=== PATIENT | male | born 1985 | race Caucasian/White ===

== ENCOUNTER 2019-03-03 11:36 | Observation (INO) | payer OTHER, BC ==
[2019-03-03] MEDS ORDERED: Acetaminophen 500 MG Tab PO ONE (12:03)
[2019-03-03] MEDS ORDERED: Sodium Chloride 0.9% 1,000 ML IV ONE ×3 (12:03→13:38)
[2019-03-03] MEDS ORDERED: Morphine 4 MG/ML Syringe IVPUSH ONE (12:14)
--- NOTE | 2019-03-03 12:41 | EDM.PDOC ---
ED HPI GENERAL MEDICAL PROBLEM - General Chief Complaint: General Stated Complaint: SORE THOAT Time Seen by Provider: 03/03/19 11:45 Source of Information: Reports: Patient History Limitations: Reports: No Limitations - History of Present Illness INITIAL COMMENTS - FREE TEXT/NARRATIVE: HISTORY AND PHYSICAL: History of present illness: Patient is a 33-year-old male who presents to the emergency room today with complaints of generally feeling unwell, cough and sore throat x2 weeks. Earlier this morning he was at the NH and did have a chest x-ray and basic lab work. He was informed to come to the emergency room for further evaluation. Patient denies any headache, change in vision, syncope or near syncope. Denies any chest pain, back pain, shortness of breath. Denies any abdominal pain, nausea, vomiting, diarrhea, constipation or dysuria. Has not noted any blood in urine or stool. Patient has been eating and drinking appropriately. Review of systems: As per history of present illness and below otherwise all systems reviewed and negative. Past medical history: As per history of present illness and as reviewed below otherwise noncontributory. Surgical history: As per history of present illness and as reviewed below otherwise noncontributory. Social history: See social history for further information Family history: As per history of present illness and as reviewed below otherwise noncontributory. Physical exam: General: Well-developed and well-nourished 33-year-old male. Alert and oriented. Nontoxic appearing but anxious and in mild distress. HEENT: Atraumatic, normocephalic, pupils equal and reactive bilaterally, negative for conjunctival pallor or scleral icterus, mucous membranes moist, TMs normal bilaterally, throat clear, neck supple, left anterior tenderness along the cervical chain, no obvious swelling, trachea midline. No drooling or trismus noted. No meningeal signs-nuchal rigidity. No hot potato voice noted. Lungs: Wheezing to the left anterior base, breath sounds equal bilaterally, chest nontender. Dry nonproductive cough noted. Heart: S1S2, tachycardiac regular rate and rhythm without overt murmur Abdomen: Soft, nondistended, nontender. Negative for masses or hepatosplenomegaly. Negative for costovertebral tenderness. Pelvis: Stable nontender. Skin: Intact, warm, dry. No lesions or rashes noted. Extremities: Atraumatic, moves all extremities per self without difficulty or deficits, negative for cords or calf pain. Neurovascular unremarkable. Neuro: Awake, alert, oriented. Cranial nerves II through XII unremarkable. Cerebellum unremarkable. Motor and sensory unremarkable throughout. Exam nonfocal. Notes: Upon arrival patient's temperature is 104.9. Septic work-up is in progress. Patient states that he can feel something in the left anterior neck and has pain there. He has no neck stiffness or nuchal rigidity. Along with the lab work I will get a CT of the soft tissue neck to make sure there is no abscess. Patient's lactate is elevated, blood cultures have been drawn. Fluids are running. Patient is positive for influenza. Were continue to monitor temperature and treat accordingly. Negative soft tissue neck. Due to patient's vital signs I feel he should stay overnight for observation for further monitoring. Patient is aware and agreeable. Dr. Beckett was consulted on this case and agreeable to keeping this patient for observation. Diagnostics: CBC, CMP, lactic acid, blood cultures, UA, Drug Screen Therapeutics: IV fluid x 2, morphine, Tylenol, Ibuprofen Impression: Influenza B Plan: Observation admission to Med/Surg Definitive disposition and diagnosis as appropriate pending reevaluation and review of above. Generalized Pain Score (Numeric/FACES): 6 - Related Data Allergies Allergy/AdvReac Type Severity Reaction Status Date / Time No Known Allergies Allergy Verified 03/03/19 11:57 Home Meds: Home Meds . [No Known Home Meds] 03/03/19 [History] Past Medical History Cardiovascular History: Reports: Hypertension - Infectious Disease History Infectious Disease History: Reports: None - Past Surgical History Musculoskeletal Surgical History: Reports: Hip Replacement Social & Family History - Family History Family Medical History: Noncontributory - Tobacco Use Smoking Status *Q: Never Smoker - Caffeine Use Caffeine Use: Reports: Coffee - Recreational Drug Use Recreational Drug Use: No ED ROS GENERAL - Review of Systems Review Of Systems: Comprehensive ROS is negative, except as noted in HPI. ED EXAM, GENERAL - Physical Exam Exam: See Below (See dictation) Course - Vital Signs Last Recorded V/S: Last Vital Signs Temp 102.2 F H 03/03/19 13:54 Pulse 112 H 03/03/19 13:35 Resp 18 03/03/19 13:35 BP 118/63 03/03/19 13:35 Pulse Ox 98 03/03/19 13:35 - Orders/Labs/Meds Orders: Active Orders 24 hr Category Date Time Status CULTURE BLOOD [BC] Stat Lab 03/03/19 12:10 Received CULTURE BLOOD [] Stat Lab 03/03/19 12:32 Received CULTURE STREP A CONFIRMATION [] Stat Lab 03/03/19 12:02 Results STREP SCRN A RAPID W CULT CONF [] Stat Lab 03/03/19 12:02 Results Blood Culture x2 Reflex Set [OM.PC] Stat Oth 03/03/19 12:03 Ordered Medication Orders Acetaminophen (Tylenol) 650 mg PO Q4H PRN PRN Reason: Pain (Mild 1-3)/fever Albuterol/Ipratropium (Duoneb 3.0-0.5 Mg/3 Ml) 3 ml NEB Q4HRRT PRN PRN Reason: dyspnea/wheezing Sodium Chloride (Normal Saline) 1,000 mls @ 250 mls/hr IV STAT ONE Stop: 03/03/19 17:37 Last Admin: 03/03/19 13:54 Dose: 250 mls/hr Sodium Chloride (Normal Saline) 1,000 mls @ 125 mls/hr IV Q8H KRISTYN Levofloxacin/Dextrose 750 mg/ (Premix) 150 mls @ 100 mls/hr IV Q24H KRISTYN Ondansetron HCl (Zofran) 4 mg IVPUSH Q4H PRN PRN Reason: Nausea Oseltamivir Phosphate (Tamiflu) 75 mg PO BID KRISTYN Labs: Laboratory Tests 03/03/19 03/03/19 03/03/19 Range/Units 12:10 12:10 12:10 WBC 9.42 (4.0-11.0) K/uL RBC 5.46 (4.50-5.90) M/uL Hgb 17.5 H (13.0-17.0) g/dL Hct 48.3 (38.0-50.0) % MCV 88.5 (80.0-98.0) fL MCH 32.1 H (27.0-32.0) pg MCHC 36.2 (31.0-37.0) g/dL RDW Std Deviation 38.7 (28.0-62.0) fl RDW Coeff of Taisha 12 (11.0-15.0) % Plt Count 200 (150-400) K/uL MPV 9.70 (7.40-12.00) fL Neut % (Auto) 80.4 H (48.0-80.0) % Lymph % (Auto) 9.8 L (16.0-40.0) % Jack % (Auto) 9.6 (0.0-15.0) % Eos % (Auto) 0.0 (0.0-7.0) % Baso % (Auto) 0.2 (0.0-1.5) % Neut # (Auto) 7.6 H (1.4-5.7) K/uL Lymph # (Auto) 0.9 (0.6-2.4) K/uL Jack # (Auto) 0.9 H (0.0-0.8) K/uL Eos # (Auto) 0.0 (0.0-0.7) K/uL Baso # (Auto) 0.0 (0.0-0.1) K/uL Nucleated RBC % 0.0 /100WBC Nucleated RBCs # 0 K/uL Lactate 2.4 H* (0.20-2.00) mmol/L Sodium 137 (136-148) mmol/L Potassium 3.6 (3.5-5.1) mmol/L Chloride 99 (98-107) mmol/L Carbon Dioxide 22.0 (21.0-32.0) mmol/L BUN 12 (7.0-18.0) mg/dL Creatinine 1.4 H (0.8-1.3) mg/dL Est Cr Clr Drug Dosing 80.68 mL/min Estimated GFR (MDRD) 58.7 ml/min Glucose 97 (74-106) mg/dL Calcium 9.6 (8.5-10.1) mg/dL Total Bilirubin 0.4 (0.2-1.0) mg/dL AST 25 (15-37) IU/L ALT 29 (14-63) IU/L Alkaline Phosphatase 34 L (46-116) U/L Total Protein 8.8 H (6.4-8.2) g/dL Albumin 4.7 (3.4-5.0) g/dL Globulin 4.1 H (2.6-4.0) g/dL Albumin/Globulin Ratio 1.2 (0.9-1.6) Urine Color Urine Appearance Urine pH (5.0-8.0) Ur Specific [place] (1.001-1.035) Urine Protein (NEGATIVE) mg/dL Urine Glucose (UA) (NEGATIVE) mg/dL Urine Ketones (NEGATIVE) mg/dL Urine Occult Blood (NEGATIVE) Urine Nitrite (NEGATIVE) Urine Bilirubin (NEGATIVE) Urine Urobilinogen (<2.0) EU/dL Ur Leukocyte Esterase (NEGATIVE) Urine Opiates Screen (NEGATIVE) Ur Oxycodone Screen (NEGATIVE) Urine Methadone Screen (NEGATIVE) Ur Barbiturates Screen (NEGATIVE) Ur Phencyclidine Scrn (NEGATIVE) Ur Amphetamine Screen (NEGATIVE) U Methamphetamines Scrn (NEGATIVE) U Benzodiazepines Scrn (NEGATIVE) U Cocaine Metab Screen (NEGATIVE) U Marijuana (THC) Screen (NEGATIVE) 03/03/19 03/03/19 Range/Units 13:22 13:22 WBC (4.0-11.0) K/uL RBC (4.50-5.90) M/uL Hgb (13.0-17.0) g/dL Hct (38.0-50.0) % MCV (80.0-98.0) fL MCH (27.0-32.0) pg MCHC (31.0-37.0) g/dL RDW Std Deviation (28.0-62.0) fl RDW Coeff of Taisha (11.0-15.0) % Plt Count (150-400) K/uL MPV (7.40-12.00) fL Neut % (Auto) (48.0-80.0) % Lymph % (Auto) (16.0-40.0) % Jack % (Auto) (0.0-15.0) % Eos % (Auto) (0.0-7.0) % Baso % (Auto) (0.0-1.5) % Neut # (Auto) (1.4-5.7) K/uL Lymph # (Auto) (0.6-2.4) K/uL Jack # (Auto) (0.0-0.8) K/uL Eos # (Auto) (0.0-0.7) K/uL Baso # (Auto) (0.0-0.1) K/uL Nucleated RBC % /100WBC Nucleated RBCs # K/uL Lactate (0.20-2.00) mmol/L Sodium (136-148) mmol/L Potassium (3.5-5.1) mmol/L Chloride (98-107) mmol/L Carbon Dioxide (21.0-32.0) mmol/L BUN (7.0-18.0) mg/dL Creatinine (0.8-1.3) mg/dL Est Cr Clr Drug Dosing mL/min Estimated GFR (MDRD) ml/min Glucose (74-106) mg/dL Calcium (8.5-10.1) mg/dL Total Bilirubin (0.2-1.0) mg/dL AST (15-37) IU/L ALT (14-63) IU/L Alkaline Phosphatase (46-116) U/L Total Protein (6.4-8.2) g/dL Albumin (3.4-5.0) g/dL Globulin (2.6-4.0) g/dL Albumin/Globulin Ratio (0.9-1.6) Urine Color YELLOW Urine Appearance CLEAR Urine pH 6.5 (5.0-8.0) Ur Specific [place] <= 1.005 (1.001-1.035) Urine Protein NEGATIVE (NEGATIVE) mg/dL Urine Glucose (UA) NEGATIVE (NEGATIVE) mg/dL Urine Ketones TRACE H (NEGATIVE) mg/dL Urine Occult Blood NEGATIVE (NEGATIVE) Urine Nitrite NEGATIVE (NEGATIVE) Urine Bilirubin NEGATIVE (NEGATIVE) Urine Urobilinogen 0.2 (<2.0) EU/dL Ur Leukocyte Esterase NEGATIVE (NEGATIVE) Urine Opiates Screen NEGATIVE (NEGATIVE) Ur Oxycodone Screen NEGATIVE (NEGATIVE) Urine Methadone Screen NEGATIVE (NEGATIVE) Ur Barbiturates Screen NEGATIVE (NEGATIVE) Ur Phencyclidine Scrn NEGATIVE (NEGATIVE) Ur Amphetamine Screen NEGATIVE (NEGATIVE) U Methamphetamines Scrn NEGATIVE (NEGATIVE) U Benzodiazepines Scrn NEGATIVE (NEGATIVE) U Cocaine Metab Screen NEGATIVE (NEGATIVE) U Marijuana (THC) Screen NEGATIVE (NEGATIVE) Meds: Medications Generic Name Dose Route Start Last Admin Trade Name Freq PRN Reason Stop Dose Admin Acetaminophen 650 mg 03/03/19 13:54 Tylenol PO Q4H PRN Pain (Mild 1-3)/fever Albuterol/Ipratropium 3 ml 03/03/19 14:42 Duoneb 3.0-0.5 Mg/3 Ml NEB Q4HRRT PRN dyspnea/wheezing Sodium Chloride 1,000 mls @ 250 mls/hr 03/03/19 13:38 03/03/19 13:54 Normal Saline IV 03/03/19 17:37 250 mls/hr STAT ONE Administration Sodium Chloride 1,000 mls @ 125 mls/hr 03/03/19 14:00 Normal Saline IV Q8H KRISTYN Levofloxacin/Dextrose 750 mg/ 150 mls @ 100 mls/hr 03/03/19 14:45 Premix IV Q24H KRISTYN Ondansetron HCl 4 mg 03/03/19 13:54 Zofran IVPUSH Q4H PRN Nausea Oseltamivir Phosphate 75 mg 03/03/19 14:15 Tamiflu PO BID KRISTYN Discontinued Medications Generic Name Dose Route Start Last Admin Trade Name Freq PRN Reason Stop Dose Admin Acetaminophen 1,000 mg 03/03/19 12:03 03/03/19 12:09 Tylenol Extra Strength PO 03/03/19 12:04 1,000 mg ONETIME ONE Administration Sodium Chloride 1,000 mls @ 999 mls/hr 03/03/19 12:03 03/03/19 12:10 Normal Saline IV 03/03/19 13:03 999 mls/hr STAT ONE Administration Sodium Chloride 1,000 mls @ 999 mls/hr 03/03/19 12:30 03/03/19 13:17 Normal Saline IV 03/03/19 13:30 999 mls/hr STAT ONE Administration Ibuprofen 800 mg 03/03/19 13:26 03/03/19 13:54 Motrin PO 03/03/19 13:27 800 mg ONETIME ONE Administration Morphine Sulfate 4 mg 03/03/19 12:14 03/03/19 13:15 Morphine IVPUSH 03/03/19 12:15 4 mg ONETIME ONE Administration Departure - Departure Time of Disposition: 13:41 Disposition: Refer to Observation Clinical Impression: Influenza - Discharge Information Sepsis Event Note - Evaluation Sepsis Screening Result: No Definite Risk - Focused Exam Vital Signs: Vital Signs Temp Temp Pulse Resp BP Pulse Ox 03/03/19 13:05 118 H 20 122/69 98 03/03/19 12:39 103.1 F H 03/03/19 12:35 103.6 F H 124 H 22 H 120/76 98 03/03/19 12:09 105 F H 03/03/19 11:57 104.9 F H 126 H 20 120/71 99 Date Exam was Performed: 03/03/19 Time Exam was Performed: 15:04 - My Orders Last 24 Hours: My Active Orders 03/03/19 12:02 CULTURE STREP A CONFIRMATION [RM] Stat STREP SCRN A RAPID W CULT CONF [RM] Stat 03/03/19 12:03 Blood Culture x2 Reflex Set [OM.PC] Stat 03/03/19 12:10 CULTURE BLOOD [BC] Stat 03/03/19 12:32 CULTURE BLOOD [BC] Stat - Assessment/Plan Last 24 Hours: My Active Orders 03/03/19 12:02 CULTURE STREP A CONFIRMATION [RM] Stat STREP SCRN A RAPID W CULT CONF [RM] Stat 03/03/19 12:03 Blood Culture x2 Reflex Set [OM.PC] Stat 03/03/19 12:10 CULTURE BLOOD [BC] Stat 03/03/19 12:32 CULTURE BLOOD [BC] Stat
[2019-03-03 12:53] LABS: POTASSIUM,K 3.6 mmol/L (3.5-5.1)
[2019-03-03] MEDS ORDERED: Ibuprofen 800 MG Tab PO ONE (13:26)
[2019-03-03] MEDS ORDERED: Ondansetron 4 MG/2 ML SDV IVPUSH PRN (13:54)
[2019-03-03] MEDS ORDERED: Acetaminophen 325 MG Tab PO PRN (13:54)
--- NOTE | 2019-03-03 14:28 | CT ---
CT neck Technique: Multiple axial sections through the neck were obtained from above the external auditory canals inferiorly to the lung apices. Comparison: No prior neck imaging. Findings: Parotid salivary glands and submandibular salivary glands are within normal limits. Thyroid gland appears within normal limits. Visualized lung apices are clear. Small normal size lymph nodes are scattered within the neck. Paranasal sinuses that are seen show nothing acute. Parapharyngeal soft tissues are symmetric between right and left sides. No fluid collections or low density collections within the neck are seen to indicate discrete abscess. No focal inflammatory change is appreciated. Prevertebral soft tissues are normal in thickness. Epiglottis is normal. Impression: 1. No abnormality is appreciated on CT study of the neck. Diagnostic code #1 This report was dictated in [place] Standard Time
[2019-03-03] MEDS ORDERED: Albuterol/Ipratropium 3.0-0.5 MG/3 ML Neb Soln NEB PRN (14:42)
[2019-03-03] MEDS ORDERED: Levofloxacin/Dextrose 5%-Water 750 MG in Premix Bag 1 BAG IV SCH (14:45)
[2019-03-03] MEDS: Oseltamivir 75 MG Cap PO SCH ×2 (15:21→20:21)
--- NOTE | 2019-03-03 15:23 | PCM.HP.2 ---
H&P History of Present Illness - General Date of Service: 03/03/19 Admit Problem/Dx: Admission Diagnosis/Problem Admission Diagnosis/Problem Influenza Source of Information: Patient History Limitations: Reports: No Limitations - History of Present Illness Initial Comments - Free Text/Narative: This 33 year old male with pmh of asthma presented to the ED today with complaints of generalized malaise, fevers, sore throat and shortness of breath. He reports he has been sick for 2 weeks. He reports no chest pain, sometimes has a productive cough which is dark in color. He denies hemoptysis. He reports he has not been eating or drinking for at least 2-3 days. He denies abdominal pain or urinary concerns. No diarrhea, actually has some constipation. He denies getting influenza vaccine. He chews tobacco occasionally, no smoking or vaping, weekend alcohol use and no recreational drug use. In the ED no leukocytosis or leukopenia noted, hgb 17.5 Hct 48. lactic acid elevated at 2.4, BUN 12 and Cr 1.4. CXR negative. Ua negative as well as Utox, negative strep. Influenza swab positive for influenza A. Temps noted to be as high as 105 F in the ED. He was given 3 L NS in the ED as well as Morphine, Tylenol and Ibuprofen. Due to throat and neck pain CT of soft tissue neck obtained, which was negative as well. BC pending. He will be admitted for dehydration, CHRISTIE, and influenza. Generalized Pain Score (Numeric/FACES): 6 - Related Data Allergies/Adverse Reactions: Allergies Allergy/AdvReac Type Severity Reaction Status Date / Time No Known Allergies Allergy Verified 03/03/19 11:57 Home Medications: Home Meds . [No Known Home Meds] 03/03/19 [History] Past Medical History HEENT History: Reports: None Cardiovascular History: Reports: Hypertension. Denies: Afib, CAD Respiratory History: Reports: Asthma. Denies: COPD Gastrointestinal History: Reports: None. Denies: GERD Genitourinary History: Reports: None Musculoskeletal History: Reports: None Neurological History: Reports: Concussion Psychiatric History: Reports: PTSD Endocrine/Metabolic History: Reports: None Hematologic History: Reports: None Immunologic History: Reports: None Oncologic (Cancer) History: Reports: None Dermatologic History: Reports: None - Infectious Disease History Infectious Disease History: Reports: None - Past Surgical History Musculoskeletal Surgical History: Reports: Hip Replacement Social & Family History - Family History Family Medical History: Noncontributory - Tobacco Use Smoking Status *Q: Never Smoker Tobacco Use Within Last Twelve Months: Smokeless Tobacco Years of Tobacco use: 4 Packs/Tins Daily: 1 Used Tobacco, but Quit: Yes Month/Year Tobacco Last Used: december 2008 Second Hand Smoke Exposure: No - Caffeine Use Caffeine Use: Reports: Coffee - Alcohol Use Days Per Week of Alcohol Use: 2 Number of Drinks Per Day: 15 Total Drinks Per Week: 30 Date of Last Drink: 02/17/19 Time of Last Drink: 09:55 - Recreational Drug Use Recreational Drug Use: No - Living Situation & Occupation Occupation: Employed ([employer]) H&P Review of Systems - Review of Systems: Review Of Systems: See Below General: Reports: Fever, Chills, Malaise, Weakness, Fatigue, Night Sweats, Decreased Appetite HEENT: Reports: Headaches, Sinus Congestion. Denies: Ear Pain Pulmonary: Reports: Shortness of Breath, Wheezing, Cough, Sputum Cardiovascular: Denies: Chest Pain Gastrointestinal: Reports: No Symptoms. Denies: Abdominal Pain, Black Stool, Bloody Stool, Decreased Appetite, Nausea, Vomiting Genitourinary: Reports: No Symptoms. Denies: Dysuria, Frequency, Burning Musculoskeletal: Reports: No Symptoms. Denies: Neck Pain Psychiatric: Reports: No Symptoms Neurological: Reports: No Symptoms Hematologic/Lymphatic: Reports: No Symptoms Immunologic: Reports: No Symptoms Exam - Exam Exam: See Below - Vital Signs Vital Signs: Last Vital Signs Temp 102.2 F H 03/03/19 13:54 Pulse 112 H 03/03/19 13:35 Resp 18 03/03/19 13:35 BP 118/63 03/03/19 13:35 Pulse Ox 98 03/03/19 13:35 Weight: 90.718 kg - Exam General: Alert, Oriented HEENT: Conjunctiva Clear, Mucosa Moist & [place]. No: Posterior Pharynx Clear ( throat eryathematous, no pustules) Neck: Supple, Trachea Midline, Lymphadenopathy Lungs: Clear to Auscultation, Normal Respiratory Effort. No: Decreased Breath Sounds, Wheezing Cardiovascular: Regular Rhythm, Tachycardia GI/Abdominal Exam: Normal Bowel Sounds, Soft, Non-Tender, No Organomegaly Back Exam: Normal Inspection, Full Range of Motion Extremities: Normal Inspection, Normal Range of Motion, Non-Tender Neuro Extensive - Mental Status: Alert, Oriented x3 Neuro Extensive - Motor, Sensory, Reflexes: CN II-XII Intact Psychiatric: Alert, Normal Affect, Normal Mood - Patient Data Lab Results Last 24 hrs: Laboratory Results - last 24 hr 03/03/19 03/03/19 03/03/19 Range/Units 12:10 12:10 12:10 WBC 9.42 (4.0-11.0) K/uL RBC 5.46 (4.50-5.90) M/uL Hgb 17.5 H (13.0-17.0) g/dL Hct 48.3 (38.0-50.0) % MCV 88.5 (80.0-98.0) fL MCH 32.1 H (27.0-32.0) pg MCHC 36.2 (31.0-37.0) g/dL RDW Std Deviation 38.7 (28.0-62.0) fl RDW Coeff of Taisha 12 (11.0-15.0) % Plt Count 200 (150-400) K/uL MPV 9.70 (7.40-12.00) fL Neut % (Auto) 80.4 H (48.0-80.0) % Lymph % (Auto) 9.8 L (16.0-40.0) % [place] % (Auto) 9.6 (0.0-15.0) % Eos % (Auto) 0.0 (0.0-7.0) % Baso % (Auto) 0.2 (0.0-1.5) % Neut # (Auto) 7.6 H (1.4-5.7) K/uL Lymph # (Auto) 0.9 (0.6-2.4) K/uL [place] # (Auto) 0.9 H (0.0-0.8) K/uL Eos # (Auto) 0.0 (0.0-0.7) K/uL Baso # (Auto) 0.0 (0.0-0.1) K/uL Nucleated RBC % 0.0 /100WBC Nucleated RBCs # 0 K/uL Lactate 2.4 H* (0.20-2.00) mmol/L Sodium 137 (136-148) mmol/L Potassium 3.6 (3.5-5.1) mmol/L Chloride 99 (98-107) mmol/L Carbon Dioxide 22.0 (21.0-32.0) mmol/L BUN 12 (7.0-18.0) mg/dL Creatinine 1.4 H (0.8-1.3) mg/dL Est Cr Clr Drug Dosing 80.68 mL/min Estimated GFR (MDRD) 58.7 ml/min Glucose 97 (74-106) mg/dL Calcium 9.6 (8.5-10.1) mg/dL Total Bilirubin 0.4 (0.2-1.0) mg/dL AST 25 (15-37) IU/L ALT 29 (14-63) IU/L Alkaline Phosphatase 34 L (46-116) U/L Total Protein 8.8 H (6.4-8.2) g/dL Albumin 4.7 (3.4-5.0) g/dL Globulin 4.1 H (2.6-4.0) g/dL Albumin/Globulin Ratio 1.2 (0.9-1.6) Urine Color Urine Appearance Urine pH (5.0-8.0) Ur Specific [place] (1.001-1.035) Urine Protein (NEGATIVE) mg/dL Urine Glucose (UA) (NEGATIVE) mg/dL Urine Ketones (NEGATIVE) mg/dL Urine Occult Blood (NEGATIVE) Urine Nitrite (NEGATIVE) Urine Bilirubin (NEGATIVE) Urine Urobilinogen (<2.0) EU/dL Ur Leukocyte Esterase (NEGATIVE) Urine Opiates Screen (NEGATIVE) Ur Oxycodone Screen (NEGATIVE) Urine Methadone Screen (NEGATIVE) Ur Barbiturates Screen (NEGATIVE) Ur Phencyclidine Scrn (NEGATIVE) Ur Amphetamine Screen (NEGATIVE) U Methamphetamines Scrn (NEGATIVE) U Benzodiazepines Scrn (NEGATIVE) U Cocaine Metab Screen (NEGATIVE) U Marijuana (THC) Screen (NEGATIVE) 03/03/19 03/03/19 Range/Units 13:22 13:22 WBC (4.0-11.0) K/uL RBC (4.50-5.90) M/uL Hgb (13.0-17.0) g/dL Hct (38.0-50.0) % MCV (80.0-98.0) fL MCH (27.0-32.0) pg MCHC (31.0-37.0) g/dL RDW Std Deviation (28.0-62.0) fl RDW Coeff of Taisha (11.0-15.0) % Plt Count (150-400) K/uL MPV (7.40-12.00) fL Neut % (Auto) (48.0-80.0) % Lymph % (Auto) (16.0-40.0) % [place] % (Auto) (0.0-15.0) % Eos % (Auto) (0.0-7.0) % Baso % (Auto) (0.0-1.5) % Neut # (Auto) (1.4-5.7) K/uL Lymph # (Auto) (0.6-2.4) K/uL [place] # (Auto) (0.0-0.8) K/uL Eos # (Auto) (0.0-0.7) K/uL Baso # (Auto) (0.0-0.1) K/uL Nucleated RBC % /100WBC Nucleated RBCs # K/uL Lactate (0.20-2.00) mmol/L Sodium (136-148) mmol/L Potassium (3.5-5.1) mmol/L Chloride (98-107) mmol/L Carbon Dioxide (21.0-32.0) mmol/L BUN (7.0-18.0) mg/dL Creatinine (0.8-1.3) mg/dL Est Cr Clr Drug Dosing mL/min Estimated GFR (MDRD) ml/min Glucose (74-106) mg/dL Calcium (8.5-10.1) mg/dL Total Bilirubin (0.2-1.0) mg/dL AST (15-37) IU/L ALT (14-63) IU/L Alkaline Phosphatase (46-116) U/L Total Protein (6.4-8.2) g/dL Albumin (3.4-5.0) g/dL Globulin (2.6-4.0) g/dL Albumin/Globulin Ratio (0.9-1.6) Urine Color YELLOW Urine Appearance CLEAR Urine pH 6.5 (5.0-8.0) Ur Specific [place] <= 1.005 (1.001-1.035) Urine Protein NEGATIVE (NEGATIVE) mg/dL Urine Glucose (UA) NEGATIVE (NEGATIVE) mg/dL Urine Ketones TRACE H (NEGATIVE) mg/dL Urine Occult Blood NEGATIVE (NEGATIVE) Urine Nitrite NEGATIVE (NEGATIVE) Urine Bilirubin NEGATIVE (NEGATIVE) Urine Urobilinogen 0.2 (<2.0) EU/dL Ur Leukocyte Esterase NEGATIVE (NEGATIVE) Urine Opiates Screen NEGATIVE (NEGATIVE) Ur Oxycodone Screen NEGATIVE (NEGATIVE) Urine Methadone Screen NEGATIVE (NEGATIVE) Ur Barbiturates Screen NEGATIVE (NEGATIVE) Ur Phencyclidine Scrn NEGATIVE (NEGATIVE) Ur Amphetamine Screen NEGATIVE (NEGATIVE) U Methamphetamines Scrn NEGATIVE (NEGATIVE) U Benzodiazepines Scrn NEGATIVE (NEGATIVE) U Cocaine Metab Screen NEGATIVE (NEGATIVE) U Marijuana (THC) Screen NEGATIVE (NEGATIVE) Result Diagrams: 03/03/19 12:10 03/03/19 12:10 Paul Results Last 24 hrs: Microbiology 03/03/19 12:02 Group A Streptococcus Rapid Screen - Final Throat NEGATIVE STREP A SCREEN REFERENCE RANGE: NEGATIVE 03/03/19 12:02 Influenza Type A Antigen Screen - Final Nasopharyngeal Swab NEGATIVE INFLUENZA A VIRUS AG REFERENCE RANGE: NEGATIVE Influenza Type B Antigen Screen - Final Positive Influenza B Ag Sepsis Event Note - Evaluation Sepsis Screening Result: No Definite Risk - Focused Exam Vital Signs: Vital Signs Temp Temp Pulse Resp BP Pulse Ox 03/03/19 13:54 102.2 F H 03/03/19 13:35 112 H 18 118/63 98 03/03/19 13:05 118 H 20 122/69 98 03/03/19 12:39 103.1 F H 03/03/19 12:35 103.6 F H 124 H 22 H 120/76 98 03/03/19 12:09 105 F H 03/03/19 11:57 104.9 F H 126 H 20 120/71 99 Date Exam was Performed: 03/03/19 Time Exam was Performed: 16:25 - Problem List (1) Dehydration SNOMED Code(s): 46247708 ICD Code: E86.0 - DEHYDRATION Status: Acute Current Visit: Yes (2) Asthma SNOMED Code(s): 755017729 ICD Code: J45.909 - UNSPECIFIED ASTHMA, UNCOMPLICATED Status: Acute Current Visit: Yes (3) CAP (community acquired pneumonia) SNOMED Code(s): 112971548 ICD Code: J18.9 - PNEUMONIA, UNSPECIFIED ORGANISM Status: Acute Current Visit: Yes Qualifiers: Laterality: unspecified laterality Qualified Code(s): J18.9 - Pneumonia, unspecified organism (4) CHRISTIE (acute kidney injury) SNOMED Code(s): 03707771, 92993821 ICD Code: N17.9 - ACUTE KIDNEY FAILURE, UNSPECIFIED Status: Acute Current Visit: Yes (5) Influenza SNOMED Code(s): 9621688 ICD Code: J11.1 - FLU DUE TO UNIDENTIFIED INFLUENZA VIRUS W OTH RESP MANIFEST Status: Acute Current Visit: Yes Problem List Initiated/Reviewed/Updated: Yes Orders Last 24hrs: Active Orders 24 hr Category Date Time Status Admission Status [Patient Status] [ADT] Stat ADT 03/03/19 13:29 Active Antiembolic Devices [RC] PER UNIT ROUTINE Care 03/03/19 13:55 Active Communication Order [RC] ROUTINE Care 03/03/19 13:57 Active Intake and Output [RC] QSHIFT Care 03/03/19 13:54 Active Oxygen Therapy [RC] PRN Care 03/03/19 13:54 Active RT Aerosol Therapy [RC] ASDIRECTED Care 03/03/19 14:42 Active Up With Assistance [RC] ASDIRECTED Care 03/03/19 13:54 Active VTE/DVT Education [RC] PER UNIT ROUTINE Care 03/03/19 13:54 Active Vital Signs [RC] Q4H Care 03/03/19 13:54 Active Regular Diet [DIET] Diet 03/03/19 Lunch Active Soft Tissue Neck w Cont [CT] Stat Exams 03/03/19 13:39 Ordered BASIC METABOLIC PANEL,BMP [CHEM] AM Lab 03/04/19 05:11 Ordered CBC WITH AUTO DIFF [HEME] AM Lab 03/04/19 05:11 Ordered CULTURE BLOOD [BC] Stat Lab 03/03/19 12:10 Received CULTURE BLOOD [BC] Stat Lab 03/03/19 12:32 Received CULTURE STREP A CONFIRMATION [RM] Stat Lab 03/03/19 12:02 Results LACTIC ACID,WHOLE BLOOD [BG] Q5H Lab 03/03/19 16:00 Ordered LACTIC ACID,WHOLE BLOOD [BG] Q5H Lab 03/03/19 21:00 Ordered LACTIC ACID,WHOLE BLOOD [BG] Q5H Lab 03/04/19 02:00 Ordered LACTIC ACID,WHOLE BLOOD [BG] Q5H Lab 03/04/19 07:00 Ordered STREP SCRN A RAPID W CULT CONF [RM] Stat Lab 03/03/19 12:02 Results Acetaminophen [Tylenol] Med 03/03/19 13:54 Active 650 mg PO Q4H PRN Albuterol/Ipratropium [DuoNeb 3.0-0.5 MG/3 ML] Med 03/03/19 14:42 Active 3 ml NEB Q4HRRT PRN Levofloxacin/Dextrose 5%-Water [Levaquin in D5W 750 MG/ Med 03/03/19 14:45 Active 150 ML] 750 mg Premix Bag 1 bag IV Q24H Ondansetron [Zofran] Med 03/03/19 13:54 Active 4 mg IVPUSH Q4H PRN Oseltamivir [Tamiflu] Med 03/03/19 14:15 Active 75 mg PO BID Sodium Chloride 0.9% [Normal Saline] 1,000 ml Med 03/03/19 14:00 Active IV Q8H Sodium Chloride 0.9% [Normal Saline] 1,000 ml Med 03/03/19 13:38 Active IV STAT Blood Culture x2 Reflex Set [OM.PC] Stat Oth 03/03/19 12:03 Ordered Sequential Compression Device [OM.PC] Per Unit Routine Oth 03/03/19 13:55 Ordered Resuscitation Status Routine Resus Stat 03/03/19 13:54 Ordered Medication Orders Acetaminophen (Tylenol) 650 mg PO Q4H PRN PRN Reason: Pain (Mild 1-3)/fever Albuterol/Ipratropium (Duoneb 3.0-0.5 Mg/3 Ml) 3 ml NEB Q4HRRT PRN PRN Reason: dyspnea/wheezing Sodium Chloride (Normal Saline) 1,000 mls @ 250 mls/hr IV STAT ONE Stop: 03/03/19 17:37 Last Admin: 03/03/19 13:54 Dose: 250 mls/hr Sodium Chloride (Normal Saline) 1,000 mls @ 125 mls/hr IV Q8H KRISTYN Levofloxacin/Dextrose 750 mg/ (Premix) 150 mls @ 100 mls/hr IV Q24H KRISTYN Last Admin: 03/03/19 15:21 Dose: 100 mls/hr Ondansetron HCl (Zofran) 4 mg IVPUSH Q4H PRN PRN Reason: Nausea Oseltamivir Phosphate (Tamiflu) 75 mg PO BID KRISTYN Last Admin: 03/03/19 15:21 Dose: 75 mg Assessment/Plan Comment:: This 33 year old male admitted with influenza with dehydration, CHRISTIE and CAP 1. Influenza: Supportive care. Tylenol for pain and fevers. Continue IVFs. Cepacol lozenges PRN for sore throat. 2. CAP: Will treat for CAP due to hx of asthma. Initially started Levaquin, but patient started having swelling of his R eye and some chest tightness. Levaquin stopped, give Solumedrol benadryl and Duoneb. Will start Rocephin and Azithromycin. Encourage IS. 3. Dehydration/CHRISTIE: Continue IVFs. Hold NSAIDs for now. Monitor CHRISTIE in am. VTE prophylaxis: SCDs and ambulation Dispo: 1-2 days - Mortality Measure Prognosis:: Good
[2019-03-03] MEDS ORDERED: Benzocaine/Cetylpyridinium/Menthol Lozenge MUCMEM PRN (15:46)
[2019-03-03] MEDS ORDERED: diphenhydrAMINE 50 MG/ML SDV IVPUSH ONE (16:08)
[2019-03-03] MEDS ORDERED: methylPREDNISolone Sodium Succinate 125 MG/2 ML SDV IVPUSH ONE (16:09)
[2019-03-03] MEDS ORDERED: Azithromycin 250 MG Tab PO SCH (16:15)
[2019-03-03] MEDS ORDERED: cefTRIAXone 1 GM in Premix Bag 1 BAG IV SCH (16:15)
[2019-03-03] MEDS ORDERED: diphenhydrAMINE 50 MG/ML SDV IVPUSH PRN (16:29)
[2019-03-03] MEDS: Sodium Chloride 0.9% 1,000 ML IV SCH (17:20)
[2019-03-03] MEDS ORDERED: Iopamidol 755 MG/ML 500 ML Multipack Bottle IVPUSH STA (18:04)
[2019-03-04] MEDS: Sodium Chloride 0.9% 1,000 ML IV SCH ×2 (00:10→08:04)
[2019-03-04 06:31] LABS: BLOOD UREA NITROGEN,BUN 13 mg/dL (7.0-18.0); CARBON DIOXIDE,CO2 21.7 mmol/L (21.0-32.0); CHLORIDE,CL 110 mmol/L (98-107); GLUCOSE RANDOM 138 mg/dL (74-106); POTASSIUM,K 4.1 mmol/L (3.5-5.1); SODIUM,NA 144 mmol/L (136-148)
[2019-03-04] MEDS: Oseltamivir 75 MG Cap PO SCH (08:06)
--- NOTE | 2019-03-04 11:09 | PCM.DCSUM1 ---
Discharge Summary - Hospital Course Brief History: This 33 year old male with pmh of asthma presented to the ED today with complaints of generalized malaise, fevers, sore throat and shortness of breath. He reports he has been sick for 2 weeks. He reports no chest pain, sometimes has a productive cough which is dark in color. He denies hemoptysis. He reports he has not been eating or drinking for at least 2-3 days. He denies abdominal pain or urinary concerns. No diarrhea, actually has some constipation. He denies getting influenza vaccine. He chews tobacco occasionally , no smoking or vaping, weekend alcohol use and no recreational drug use. In the ED no leukocytosis or leukopenia noted, hgb 17.5 Hct 48. lactic acid elevated at 2.4, BUN 12 and Cr 1.4. CXR negative. Ua negative as well as Utox, negative strep. Influenza swab positive for influenza A. Temps noted to be as high as 105 F in the ED. He was given 3 L NS in the ED as well as Morphine, Tylenol and Ibuprofen. Due to throat and neck pain CT of soft tissue neck obtained, which was negative as well. BC pending. He will be admitted for dehydration, CHRISTIE, and influenza. Diagnosis: Stroke: No - Discharge Data Discharge Date: 03/04/19 Discharge Disposition: Home, Self-Care 01 Condition: Good - Referral to Home Health Primary Care Physician: Julio Mcallister NP - Discharge Diagnosis/Problem(s) (1) Dehydration SNOMED Code(s): 34435754 ICD Code: E86.0 - DEHYDRATION Status: Acute Current Visit: Yes (2) Asthma SNOMED Code(s): 858787931 ICD Code: J45.909 - UNSPECIFIED ASTHMA, UNCOMPLICATED Status: Acute Current Visit: Yes (3) CAP (community acquired pneumonia) SNOMED Code(s): 694204031 ICD Code: J18.9 - PNEUMONIA, UNSPECIFIED ORGANISM Status: Acute Current Visit: Yes Qualifiers: Laterality: unspecified laterality Qualified Code(s): J18.9 - Pneumonia, unspecified organism (4) CHRISTIE (acute kidney injury) SNOMED Code(s): 40710826, 91375200 ICD Code: N17.9 - ACUTE KIDNEY FAILURE, UNSPECIFIED Status: Acute Current Visit: Yes (5) Influenza SNOMED Code(s): 5814307 ICD Code: J11.1 - FLU DUE TO UNIDENTIFIED INFLUENZA VIRUS W OTH RESP MANIFEST Status: Acute Current Visit: Yes - Patient Instructions Diet: Usual Diet as Tolerated, Drink 8-10+ Glasses/Day Activity: No Strenuous Activities, Rest and Relax Today Showering/Bathing: May Shower Notify Provider of: Fever, Increased Pain, Swelling and Redness, Drainage, Nausea and/or Vomiting - Discharge Plan *PRESCRIPTION DRUG MONITORING PROGRAM REVIEWED*: Not Applicable *COPY OF PRESCRIPTION DRUG MONITORING REPORT IN PATIENT MORIAH: Not Applicable Prescriptions/Med Rec: Azithromycin [Zithromax] 500 mg PO Q24H #8 tablet Oseltamivir [Tamiflu] 75 mg PO BID #10 cap Home Medications: Home Meds Acetaminophen [Tylenol] 650 mg PO Q4H PRN tablet 03/04/19 [Rx] Albuterol/Ipratropium [Combivent Respimat] 4 gm IH DAILY PRN 03/04/19 [History] Azithromycin [Zithromax] 500 mg PO Q24H #8 tablet 03/04/19 [Rx] Oseltamivir [Tamiflu] 75 mg PO BID #10 cap 03/04/19 [Rx] Oxygen Therapy Mode: Room Air Patient Handouts: Influenza, Adult, [id number], Oseltamivir capsules, Azithromycin tablets, Community-Acquired Pneumonia, Adult, [id number] Referrals: [facility] [Outside] Julio Mcallister, [employer] [Primary Care Provider] - (1 week ) - Discharge Summary/Plan Comment DC Time >30 min.: No Discharge Summary/Plan Comment: Admitting Diagnoses: Influenza A Dehydration CHRISTIE PNA Discharge Diagnoses: Influenza A Dehydration CHRISTIE PNA Other PMH: PTSD Asthma '[place]" was admitted for influenza A as well as dehydration CHRISTIE and suspected CAP. He was treated with 4 L NS which improved symptoms significantly. He was also given tamiflu 75 mg BID, Azithromycin and Rocephin. He tolerated medications well and this morning, feel remarkable improved and is ready to go home. Labwork improved, no further CHRISTIE noted. He will be discharged home today with Tamiflu for 5 more days as well as Azithromycin. I encouraged him to remain home from work for the weekend and to stay very hydrated with water. He will be discharged home today. Has albuterol refill from PCP. He is to return to ED or clinic if concerns should arise. - General Info Date of Service: 03/04/19 Functional Status: Reports: Pain Controlled, Tolerating Diet, Ambulating, Urinating - Review of Systems General: Reports: Malaise (but much improved ). Denies: Fever Pulmonary: Reports: No Symptoms. Denies: Shortness of Breath Cardiovascular: Reports: No Symptoms. Denies: Chest Pain Gastrointestinal: Reports: No Symptoms. Denies: Abdominal Pain, Nausea, Vomiting Genitourinary: Reports: No Symptoms. Denies: Dysuria, Frequency Skin: Reports: No Symptoms Neurological: Reports: No Symptoms Psychiatric: Reports: No Symptoms - Patient Data Vitals - Most Recent: Last Vital Signs Temp 96.9 F 03/04/19 04:52 Pulse 52 L 03/04/19 04:52 Resp 17 03/04/19 04:52 BP 108/57 L 03/04/19 04:52 Pulse Ox 96 03/04/19 04:52 Weight - Most Recent: 90.718 kg I&O - Last 24 hours: Intake & Output 03/03/19 03/04/19 03/04/19 22:59 06:59 14:59 Intake Total 2223 Output Total 1600 Balance 623 Lab Results - Last 24 hrs: Laboratory Results - last 24 hr 03/03/19 03/03/19 03/03/19 Range/Units 12:10 12:10 12:10 WBC 9.42 (4.0-11.0) K/uL RBC 5.46 (4.50-5.90) M/uL Hgb 17.5 H (13.0-17.0) g/dL Hct 48.3 (38.0-50.0) % MCV 88.5 (80.0-98.0) fL MCH 32.1 H (27.0-32.0) pg MCHC 36.2 (31.0-37.0) g/dL RDW Std Deviation 38.7 (28.0-62.0) fl RDW Coeff of Taisha 12 (11.0-15.0) % Plt Count 200 (150-400) K/uL MPV 9.70 (7.40-12.00) fL Neut % (Auto) 80.4 H (48.0-80.0) % Lymph % (Auto) 9.8 L (16.0-40.0) % Taylor % (Auto) 9.6 (0.0-15.0) % Eos % (Auto) 0.0 (0.0-7.0) % Baso % (Auto) 0.2 (0.0-1.5) % Neut # (Auto) 7.6 H (1.4-5.7) K/uL Lymph # (Auto) 0.9 (0.6-2.4) K/uL Taylor # (Auto) 0.9 H (0.0-0.8) K/uL Eos # (Auto) 0.0 (0.0-0.7) K/uL Baso # (Auto) 0.0 (0.0-0.1) K/uL Nucleated RBC % 0.0 /100WBC Nucleated RBCs # 0 K/uL Lactate 2.4 H* (0.20-2.00) mmol/L Sodium 137 (136-148) mmol/L Potassium 3.6 (3.5-5.1) mmol/L Chloride 99 (98-107) mmol/L Carbon Dioxide 22.0 (21.0-32.0) mmol/L BUN 12 (7.0-18.0) mg/dL Creatinine 1.4 H (0.8-1.3) mg/dL Est Cr Clr Drug Dosing 80.68 mL/min Estimated GFR (MDRD) 58.7 ml/min Glucose 97 (74-106) mg/dL Calcium 9.6 (8.5-10.1) mg/dL Total Bilirubin 0.4 (0.2-1.0) mg/dL AST 25 (15-37) IU/L ALT 29 (14-63) IU/L Alkaline Phosphatase 34 L (46-116) U/L Total Protein 8.8 H (6.4-8.2) g/dL Albumin 4.7 (3.4-5.0) g/dL Globulin 4.1 H (2.6-4.0) g/dL Albumin/Globulin Ratio 1.2 (0.9-1.6) Urine Color Urine Appearance Urine pH (5.0-8.0) Ur Specific Vermillion (1.001-1.035) Urine Protein (NEGATIVE) mg/dL Urine Glucose (UA) (NEGATIVE) mg/dL Urine Ketones (NEGATIVE) mg/dL Urine Occult Blood (NEGATIVE) Urine Nitrite (NEGATIVE) Urine Bilirubin (NEGATIVE) Urine Urobilinogen (<2.0) EU/dL Ur Leukocyte Esterase (NEGATIVE) Urine Opiates Screen (NEGATIVE) Ur Oxycodone Screen (NEGATIVE) Urine Methadone Screen (NEGATIVE) Ur Barbiturates Screen (NEGATIVE) Ur Phencyclidine Scrn (NEGATIVE) Ur Amphetamine Screen (NEGATIVE) U Methamphetamines Scrn (NEGATIVE) U Benzodiazepines Scrn (NEGATIVE) U Cocaine Metab Screen (NEGATIVE) U Marijuana (THC) Screen (NEGATIVE) 03/03/19 03/03/19 03/03/19 Range/Units 13:22 13:22 16:10 WBC (4.0-11.0) K/uL RBC (4.50-5.90) M/uL Hgb (13.0-17.0) g/dL Hct (38.0-50.0) % MCV (80.0-98.0) fL MCH (27.0-32.0) pg MCHC (31.0-37.0) g/dL RDW Std Deviation (28.0-62.0) fl RDW Coeff of Taisha (11.0-15.0) % Plt Count (150-400) K/uL MPV (7.40-12.00) fL Neut % (Auto) (48.0-80.0) % Lymph % (Auto) (16.0-40.0) % Taylor % (Auto) (0.0-15.0) % Eos % (Auto) (0.0-7.0) % Baso % (Auto) (0.0-1.5) % Neut # (Auto) (1.4-5.7) K/uL Lymph # (Auto) (0.6-2.4) K/uL Taylor # (Auto) (0.0-0.8) K/uL Eos # (Auto) (0.0-0.7) K/uL Baso # (Auto) (0.0-0.1) K/uL Nucleated RBC % /100WBC Nucleated RBCs # K/uL Lactate 1.1 (0.20-2.00) mmol/L Sodium (136-148) mmol/L Potassium (3.5-5.1) mmol/L Chloride (98-107) mmol/L Carbon Dioxide (21.0-32.0) mmol/L BUN (7.0-18.0) mg/dL Creatinine (0.8-1.3) mg/dL Est Cr Clr Drug Dosing mL/min Estimated GFR (MDRD) ml/min Glucose (74-106) mg/dL Calcium (8.5-10.1) mg/dL Total Bilirubin (0.2-1.0) mg/dL AST (15-37) IU/L ALT (14-63) IU/L Alkaline Phosphatase (46-116) U/L Total Protein (6.4-8.2) g/dL Albumin (3.4-5.0) g/dL Globulin (2.6-4.0) g/dL Albumin/Globulin Ratio (0.9-1.6) Urine Color YELLOW Urine Appearance CLEAR Urine pH 6.5 (5.0-8.0) Ur Specific Vermillion <= 1.005 (1.001-1.035) Urine Protein NEGATIVE (NEGATIVE) mg/dL Urine Glucose (UA) NEGATIVE (NEGATIVE) mg/dL Urine Ketones TRACE H (NEGATIVE) mg/dL Urine Occult Blood NEGATIVE (NEGATIVE) Urine Nitrite NEGATIVE (NEGATIVE) Urine Bilirubin NEGATIVE (NEGATIVE) Urine Urobilinogen 0.2 (<2.0) EU/dL Ur Leukocyte Esterase NEGATIVE (NEGATIVE) Urine Opiates Screen NEGATIVE (NEGATIVE) Ur Oxycodone Screen NEGATIVE (NEGATIVE) Urine Methadone Screen NEGATIVE (NEGATIVE) Ur Barbiturates Screen NEGATIVE (NEGATIVE) Ur Phencyclidine Scrn NEGATIVE (NEGATIVE) Ur Amphetamine Screen NEGATIVE (NEGATIVE) U Methamphetamines Scrn NEGATIVE (NEGATIVE) U Benzodiazepines Scrn NEGATIVE (NEGATIVE) U Cocaine Metab Screen NEGATIVE (NEGATIVE) U Marijuana (THC) Screen NEGATIVE (NEGATIVE) 03/04/19 03/04/19 Range/Units 05:43 05:43 WBC 7.52 (4.0-11.0) K/uL RBC 4.87 (4.50-5.90) M/uL Hgb 15.4 (13.0-17.0) g/dL Hct 43.6 (38.0-50.0) % MCV 89.5 (80.0-98.0) fL MCH 31.6 (27.0-32.0) pg MCHC 35.3 (31.0-37.0) g/dL RDW Std Deviation 39.9 (28.0-62.0) fl RDW Coeff of Taisha 12 (11.0-15.0) % Plt Count 179 (150-400) K/uL MPV 9.70 (7.40-12.00) fL Neut % (Auto) 88.9 H (48.0-80.0) % Lymph % (Auto) 8.2 L (16.0-40.0) % Taylor % (Auto) 2.8 (0.0-15.0) % Eos % (Auto) 0.0 (0.0-7.0) % Baso % (Auto) 0.1 (0.0-1.5) % Neut # (Auto) 6.7 H (1.4-5.7) K/uL Lymph # (Auto) 0.6 (0.6-2.4) K/uL Taylor # (Auto) 0.2 (0.0-0.8) K/uL Eos # (Auto) 0.0 (0.0-0.7) K/uL Baso # (Auto) 0.0 (0.0-0.1) K/uL Nucleated RBC % 0.0 /100WBC Nucleated RBCs # 0 K/uL Lactate (0.20-2.00) mmol/L Sodium 144 (136-148) mmol/L Potassium 4.1 (3.5-5.1) mmol/L Chloride 110 H (98-107) mmol/L Carbon Dioxide 21.7 (21.0-32.0) mmol/L BUN 13 (7.0-18.0) mg/dL Creatinine 0.9 (0.8-1.3) mg/dL Est Cr Clr Drug Dosing 125.50 mL/min Estimated GFR (MDRD) > 60.0 ml/min Glucose 138 H (74-106) mg/dL Calcium 8.4 L (8.5-10.1) mg/dL Total Bilirubin (0.2-1.0) mg/dL AST (15-37) IU/L ALT (14-63) IU/L Alkaline Phosphatase (46-116) U/L Total Protein (6.4-8.2) g/dL Albumin (3.4-5.0) g/dL Globulin (2.6-4.0) g/dL Albumin/Globulin Ratio (0.9-1.6) Urine Color Urine Appearance Urine pH (5.0-8.0) Ur Specific Vermillion (1.001-1.035) Urine Protein (NEGATIVE) mg/dL Urine Glucose (UA) (NEGATIVE) mg/dL Urine Ketones (NEGATIVE) mg/dL Urine Occult Blood (NEGATIVE) Urine Nitrite (NEGATIVE) Urine Bilirubin (NEGATIVE) Urine Urobilinogen (<2.0) EU/dL Ur Leukocyte Esterase (NEGATIVE) Urine Opiates Screen (NEGATIVE) Ur Oxycodone Screen (NEGATIVE) Urine Methadone Screen (NEGATIVE) Ur Barbiturates Screen (NEGATIVE) Ur Phencyclidine Scrn (NEGATIVE) Ur Amphetamine Screen (NEGATIVE) U Methamphetamines Scrn (NEGATIVE) U Benzodiazepines Scrn (NEGATIVE) U Cocaine Metab Screen (NEGATIVE) U Marijuana (THC) Screen (NEGATIVE) GIL Results - Last 24 hrs: Microbiology 03/03/19 12:02 Group A Streptococcus Rapid Screen - Final Throat NEGATIVE STREP A SCREEN REFERENCE RANGE: NEGATIVE 03/03/19 12:02 Influenza Type A Antigen Screen - Final Nasopharyngeal Swab NEGATIVE INFLUENZA A VIRUS AG REFERENCE RANGE: NEGATIVE Influenza Type B Antigen Screen - Final Positive Influenza B Ag Med Orders - Current: Current Medications Acetaminophen (Tylenol) 650 mg PO Q4H PRN PRN Reason: Pain (Mild 1-3)/fever Albuterol/Ipratropium (Duoneb 3.0-0.5 Mg/3 Ml) 3 ml NEB Q4HRRT PRN PRN Reason: dyspnea/wheezing Last Admin: 03/04/19 08:06 Dose: 3 ml Azithromycin (Zithromax) 500 mg PO Q24H KRISTYN Last Admin: 03/03/19 17:21 Dose: 500 mg Benzocaine/Menthol (Cepacol Sore Throat) 1 lozenge MUCMEM Q2H PRN PRN Reason: Sore Throat Last Admin: 03/03/19 16:31 Dose: 1 lozenge Diphenhydramine HCl (Benadryl) 25 mg IVPUSH Q6H PRN PRN Reason: facial swelling Sodium Chloride (Normal Saline) 1,000 mls @ 125 mls/hr IV Q8H KRISTYN Last Admin: 03/04/19 08:04 Dose: 125 mls/hr Ceftriaxone Sodium/Dextrose 1 (gm/ Premix) 50 mls @ 100 mls/hr IV Q24H [facility] Last Admin: 03/03/19 17:20 Dose: 100 mls/hr Ondansetron HCl (Zofran) 4 mg IVPUSH Q4H PRN PRN Reason: Nausea Oseltamivir Phosphate (Tamiflu) 75 mg PO BID [facility] Last Admin: 03/04/19 08:06 Dose: 75 mg Discontinued Medications Acetaminophen (Tylenol Extra Strength) 1,000 mg PO ONETIME ONE Stop: 03/03/19 12:04 Last Admin: 03/03/19 12:09 Dose: 1,000 mg Diphenhydramine HCl (Benadryl) 25 mg IVPUSH ONETIME ONE Stop: 03/03/19 16:09 Last Admin: 03/03/19 16:22 Dose: 25 mg Sodium Chloride (Normal Saline) 1,000 mls @ 999 mls/hr IV STAT ONE Stop: 03/03/19 13:03 Last Admin: 03/03/19 12:10 Dose: 999 mls/hr Sodium Chloride (Normal Saline) 1,000 mls @ 999 mls/hr IV STAT ONE Stop: 03/03/19 13:30 Last Admin: 03/03/19 13:17 Dose: 999 mls/hr Sodium Chloride (Normal Saline) 1,000 mls @ 250 mls/hr IV STAT ONE Stop: 03/03/19 17:37 Last Admin: 03/03/19 13:54 Dose: 250 mls/hr Levofloxacin/Dextrose 750 mg/ (Premix) 150 mls @ 100 mls/hr IV Q24H [facility] Last Admin: 03/03/19 15:21 Dose: 100 mls/hr Ibuprofen (Motrin) 800 mg PO ONETIME ONE Stop: 03/03/19 13:27 Last Admin: 03/03/19 13:54 Dose: 800 mg Iopamidol (Isovue Multipack-370 (76%)) 100 ml IVPUSH ONETIME STA Stop: 03/03/19 18:05 Last Admin: 03/03/19 18:05 Dose: 100 ml Methylprednisolone Sodium Succinate (Solu-Medrol) 125 mg IVPUSH ONETIME ONE Stop: 03/03/19 16:10 Last Admin: 03/03/19 16:22 Dose: 125 mg Morphine Sulfate (Morphine) 4 mg IVPUSH ONETIME ONE Stop: 03/03/19 12:15 Last Admin: 03/03/19 13:15 Dose: 4 mg
== END 2019-03-04 12:15 | disposition home or self-care (01) ==
LOC: MW.ED 11:36 → MW.MS 13:29
PROVIDERS: ADMIT Internal Medicine; ATTEND Internal Medicine
DX: J10.1 Influenza due to other identified influenza virus with other respiratory manifestations (principal); E86.0 Dehydration; N17.9 Acute kidney failure, unspecified; J18.9 Pneumonia, unspecified organism; J45.909 Unspecified asthma, uncomplicated; I10 Essential (primary) hypertension
CPT/HCPCS: 36415; 70491; 80048; 80053; 80305; 81003; 83605; 85025; 87040; 87081; 87804; 87880; A9270; J0696; J1200; J1956; J2270; J2930; J7030; Q9967; 96361; 96374; 96375; 99284-25; G0378; J7620-GY

== ENCOUNTER 2021-03-27 16:19 | Emergency (ER) | payer BC, OTHER ==
[2021-03-27] MEDS ORDERED: Lidocaine/Prilocaine 2.5-2.5% Crm 5 GM Tube TOP ONE (16:39)
[2021-03-27] MEDS ORDERED: Sulfamethoxazole/Trimethoprim 800-160 MG Tab PO ONE (16:40)
[2021-03-27] MEDS ORDERED: HYDROmorphone 1 MG/ML Syringe IVPUSH ONE (16:43)
[2021-03-27] MEDS ORDERED: Lidocaine/EPINEPHrine/Tetracaine Soln 1 ML TOP ONE (16:44)
== END 2021-03-27 17:54 | disposition home or self-care (01) ==
LOC: MW.ED 16:19
DX: L02.212 Cutaneous abscess of back [any part, except buttock and flank] (principal); I10 Essential (primary) hypertension; Z88.1 Allergy status to other antibiotic agents
CPT/HCPCS: 10060; 96374; 99282; A9270; J1170

== ENCOUNTER 2021-04-27 14:39 | Emergency (ER) | payer OTHER | END 2021-04-27 17:15 | disposition home or self-care (01) | LOC: MW.ED 14:39 | DX: S00.31XA Abrasion of nose, initial encounter (principal); S09.90XA Unspecified injury of head, initial encounter; I10 Essential (primary) hypertension; J45.909 Unspecified asthma, uncomplicated; Z79.899 Other long term (current) drug therapy; Z90.09 Acquired absence of other part of head and neck; W01.198A Fall on same level from slipping, tripping and stumbling with subsequent striking against other object, initial encounter; X50.0XXA Overexertion from strenuous movement or load, initial encounter; Y99.0 Civilian activity done for income or pay | CPT/HCPCS: 70450; 70450-26; 70486; 70486-26; 99283-25; 99284 ==

== ENCOUNTER 2021-10-17 09:29 | Emergency (ER) | payer OTHER ==
[2021-10-17] MEDS ORDERED: Ondansetron 4 MG/2 ML SDV IVPUSH ONE (09:53)
[2021-10-17] MEDS ORDERED: Morphine 4 MG/ML VIAL IVPUSH ONE (09:53)
[2021-10-17] MEDS ORDERED: Sodium Chloride 0.9% 1,000 ML IV SCH (10:00)
[2021-10-17 10:42] LABS: CARBON DIOXIDE,CO2 25.7 mmol/L (21.0-32.0); POTASSIUM,K 3.1 mmol/L (3.5-5.1)
== END 2021-10-17 11:30 | disposition home or self-care (01) ==
LOC: MW.ED 09:29
DX: N45.1 Epididymitis (principal); I10 Essential (primary) hypertension; F17.210 Nicotine dependence, cigarettes, uncomplicated; Z79.899 Other long term (current) drug therapy
CPT/HCPCS: 36415; 76870; 80053; 81003; 83605; 85025; 87040; 93976; 96361; 96374; 96375; 99284; J2270; J2405; J7030

== ENCOUNTER 2023-08-31 14:02 | Emergency (ER) | payer OTHER ==
[2023-08-31] MEDS: Lidocaine 2% Viscous Solution 15 ML UD PO STA (15:28)
[2023-08-31 16:05] LABS: CORONAVIRUS COVID-19 NAA NEGATIVE (NEGATIVE); INFLUENZA A NAA NEGATIVE (NEGATIVE); INFLUENZA B NAA NEGATIVE (NEGATIVE); RESPIRATORY SYNCYTIAL VIR NAA NEGATIVE (NEGATIVE)
== END 2023-08-31 16:33 | disposition home or self-care (01) ==
LOC: MW.ED 14:02
DX: J02.9 Acute pharyngitis, unspecified (principal); I10 Essential (primary) hypertension; J45.909 Unspecified asthma, uncomplicated; Z79.899 Other long term (current) drug therapy; Z75.8 Other problems related to medical facilities and other health care
CPT/HCPCS: 0241U; 71046; 87651; 99283; A9270

== ENCOUNTER 2024-05-07 08:43 | Emergency (ER) | payer OTHER ==
[2024-05-07] MEDS: Sodium Chloride 0.9% 1,000 ML IV ONE (09:23)
[2024-05-07] MEDS: HYDROmorphone 1 MG/ML Syringe IVPUSH ONE (09:23)
[2024-05-07 09:26] LABS: BASOPHILS ABSOLUTE AUTO 0.04 K/uL (0.00-0.20); BASOPHILS PERCENT AUTO 0.3 % (0.0-1.0); EOSINOPHILS ABSOLUTE AUTO 0.14 K/uL (0.00-0.45); EOSINOPHILS PERCENT AUTO 1.2 % (0.0-6.0); HEMATOCRIT 46.7 % (42.0-52.0); IMMATURE GRAN ABSOLUTE AUTO 0.05 K/uL (0.00-0.05); IMMATURE GRAN PERCENT AUTO 0.4 % (0.0-0.4); LYMPHOCYTES ABSOLUTE AUTO 1.71 K/uL (1.00-4.80); LYMPHOCYTES PERCENT AUTO 14.9 % (24.0-44.0); MEAN CORPUSCULAR HEMOGLOBIN 32.8 pg (28.0-32.0); MEAN CORPUSCULAR HGB CONC 36.4 g/dL (32.0-36.0); MEAN CORPUSCULAR VOLUME 90.2 fL (83.0-99.0); MEAN PLATELET VOLUME 9.1 fL (9.4-12.4); MONOCYTES ABSOLUTE AUTO 1.02 K/uL (0.00-0.80); MONOCYTES PERCENT AUTO 8.9 % (0.0-8.0); NEUTROPHILS ABSOLUTE AUTO 8.53 K/uL (1.80-7.70); NEUTROPHILS PERCENT AUTO 74.3 % (41.0-71.0); PLATELET COUNT,PLT 217 K/uL (150-400); RED BLOOD CELL COUNT 5.18 M/uL (4.52-5.90); WHITE BLOOD CELL COUNT,WBC 11.49 K/uL (3.9-11.3)
[2024-05-07 09:42] LABS: CALCIUM 9.2 mg/dL (8.5-10.1); CREATININE 1.2 mg/dL (0.8-1.3); EST CRCL DRUG DOSING (CG) 88.9 mL/min; POTASSIUM,K 3.4 mmol/L (3.5-5.1)
[2024-05-07] MEDS: Sodium Chloride 0.9% 500 ML IV SCH (10:59)
== END 2024-05-07 11:50 | disposition home or self-care (01) ==
LOC: MW.ED 08:43
DX: R07.0 Pain in throat (principal); I10 Essential (primary) hypertension; Z79.899 Other long term (current) drug therapy; Z75.8 Other problems related to medical facilities and other health care
CPT/HCPCS: 36415; 80048; 85025; 96361; 96374; 96375; 99283; J1100; J1171; J7030; J7040